=== PATIENT | female | born 1985 | race Two or more races ===

== ENCOUNTER 2025-02-03 07:13 | Emergency (ER) | payer OTHER ==
[~2025-02-03] VITALS: Ht 157.5 cm; Wt 63.5 kg
[2025-02-03] MEDS ORDERED: METHYLPREDNISOLONE SOD SUCC 125 MG VIAL IV ONE (08:45)
[2025-02-03] MEDS ORDERED: ALBUTEROL SULFATE 3 ML/2.5 MG AMPUL.NEB IH SCH (08:45)
[2025-02-03] MEDS ORDERED: LORATADINE 10 MG TABLET PO ONE (08:45)
[2025-02-03] MEDS ORDERED: IPRATROPIUM BROMIDE 0.5 MG/2.5 ML AMPUL.NEB IH SCH (08:45)
[2025-02-03] MEDS ORDERED: CEFTRIAXONE SODIUM 1,000 MG VIAL IV ONE (08:45)
[2025-02-03] MEDS ORDERED: METHYLPREDNISOLONE SOD SUCC 125 MG VIAL ONE (08:46)
[2025-02-03] MEDS ORDERED: CEFTRIAXONE SODIUM 1,000 MG VIAL ONE (08:46)
[2025-02-03] MEDS ORDERED: IPRATROPIUM BROMIDE 0.5 MG/2.5 ML AMPUL.NEB IH ONE (09:31)
[2025-02-03] MEDS ORDERED: ALBUTEROL SULFATE 3 ML/2.5 MG AMPUL.NEB IH ONE (09:31)
[2025-02-03 09:56] LABS: BASO % 1.2 % (0.1-1.2); EOS # 1.00 (0.04-0.54); EOS % 13.0 % (0.7-7.0); LYMPH # 1.97 (1.18-3.74); LYMPH % 25.5 % (19.3-53.1); MEAN PLATELET VOLUME 10.80 fl (9.4-12.4); MONO # 0.53 (0.24-0.82); MONO % 6.9 % (4.7-12.5); NEUT # 4.09 (1.56-6.13); NEUT % 52.9 % (34.0-71.1); RED CELL DISTRIBUTION WIDTH 12.2 % (11.6-14.4)
[2025-02-03 10:16] LABS: COVID-19 AG NEGATIVE (NEGATIVE)
== END 2025-02-03 12:54 | disposition home or self-care (01) ==
LOC: ER 07:14
PROVIDERS: General Practice
DX: J45.901 Unspecified asthma with (acute) exacerbation (principal); J45.909 Unspecified asthma, uncomplicated; R06.02 Shortness of breath; Z20.822 Contact with and (suspected) exposure to COVID-19

== ENCOUNTER → 2025-02-26 | Emergency (ER) | payer OTHER ==
[~2025-02-26] VITALS: Ht 157.5 cm; Wt 67.1 kg
[~2025-02-26] MED LIST: 0.9 % SODIUM CHLORIDE 1,000 ML IV SCH; IPRAT-ALBUT 0.5-3 ML IH; IPRATROPIUM/ALBUTEROL SULFATE 3 ML AMPUL.NEB IH ONE; IPRATROPIUM/ALBUTEROL SULFATE 3 ML AMPUL.NEB IH SCH; METHYLPREDNISOLONE SOD SUCC 125 MG VIAL IV ONE; PREDNISONE20 M1 PO
[2025-02-26 08:32] LABS: BASO % 0.8 % (0.1-1.2); EOS # 0.72 (0.04-0.54); EOS % 9.8 % (0.7-7.0); LYMPH # 2.16 (1.18-3.74); LYMPH % 29.5 % (19.3-53.1); MEAN PLATELET VOLUME 10.60 fl (9.4-12.4); MONO # 0.56 (0.24-0.82); MONO % 7.6 % (4.7-12.5); NEUT # 3.81 (1.56-6.13); NEUT % 52.0 % (34.0-71.1); RED CELL DISTRIBUTION WIDTH 12.0 % (11.6-14.4)
[2025-02-26 09:11] LABS: BUN CREA RATIO 12.0 (7.0-25.0); CREATININE SERUM 0.82 mg/dL (0.55-1.02); GFR 77.61; GLUCOSE FASTING 94.0 mg/dL (65-100); OSMOLALITY SERUM 289.0 MOSM/KG (275-295)
[2025-02-26 09:46] LABS: COVID-19 AG NEGATIVE (NEGATIVE)
== END | disposition home or self-care (01) ==
LOC: ER 06:17
PROVIDERS: Student in an Organized Health Care Education/Training Program
DX: J45.41 Moderate persistent asthma with (acute) exacerbation (principal); Z20.822 Contact with and (suspected) exposure to COVID-19